=== PATIENT | female | born 1975 | race Caucasian/White ===

== ENCOUNTER 2020-02-29 17:10 | Emergency (ER) | payer BC, OTHER ==
[2020-02-29 17:19] VITALS: BP 107/51; PULSE 75; TEMP 98.4; BMI 36.6
--- NOTE | 2020-02-29 18:26 | PDOC ---
History of Present Illness - General Chief Complaint: Eye Problem Stated Complaint: EYE IRRITATION Time Seen by Provider: 02/29/20 17:46 History Source: Patient Exam Limitations: Clinical Condition - History of Present Illness Initial Comments: 02/29/20 18:28 Patient with no significant past medical history present with complaint of over 2 weeks history of burning sensation bilateral eyes with yellow discharge upon waking the morning and bilateral eye irritation. Denies blurry vision or change in vision. Patient reported calling her readiness paraprofessional and have a follow-up ap pointment in 3 days but came in today because symptoms since persistent. 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 Denies any trauma or injury to eye. Denies any other symptoms Is this a multiple visit Asthma Patient?: No Timing/Duration: other (2 weeks) Past History - Medical History Allergies/Adverse Reactions: Allergies Allergy/AdvReac Type Severity Reaction Status Date / Time No Known Allergies Allergy Verified 02/29/20 17:14 Home Medications: Ambulatory Orders Erythromycin 0.5% Eye Ointment [Erythromycin 0.5% Eye Ointment -] 1 applic OU TID 5 Days #1 tube 02/29/20 - Reproductive History Is Patient Now?: No - Psycho-Social/Smoking History Smoking History: Never smoked Have you smoked in the past 12 months: No - Substance Abuse Hx (Audit-C & DAST Scrn) How often the patient has a drink containing alcohol: Never Score: In Men: 4 or > Positive; In Women: 3 or > Positive: 0 Screen Result (Pos requires Nsg. Audit-10AR): Negative In the last yr the pt used illegal drug/Rx for NonMed reason: No Score: Yes response is considered Positive: 0 Screen Result (Positive result requires Nsg. DAST-10): Negative Review of Systems - Review of Systems Able to Perform ROS?: Yes Is the patient limited [place] proficient: No Constitutional: No: Chills, Fever, Malaise HEENTM: Yes: Symptoms Reported, See HPI, Eye Pain (b/l eye irritation). No: Blurred Vision, Tearing, Recent change in vision, Double Vision, Cataracts, Ear Pain, Ocular Prothesis, Ear Discharge, Nose Pain, Nose Congestion, Tinnitus, Nose Bleeding, Hearing Loss, Throat Pain, Throat Swelling, Mouth Pain, Dental Problems, Difficulty Swallowing, Mouth Swelling, Other Respiratory: No: Symptoms reported, See HPI, Cough, Orthopnea, Shortness of Breath, SOB with Exertion, SOB at Rest, Stridor, Wheezing, Productive cough, Hemoptysis, Other Cardiac (ROS): No: Symptoms Reported, See HPI, Chest Pain, Edema, Irregular Heart Rate, Lightheadedness, Palpitations, Syncope, Chest Tightness, Other ABD/GI: No: Symptoms Reported, Nausea, Vomiting Integumentary: No: Symptoms Reported, See HPI, Erythema Neurological: No: Symptoms reported, Headache, Weakness, Dizziness All Other Systems: Reviewed and Negative *Physical Exam - Vital Signs Last Vital Signs Temp Pulse Resp BP Pulse Ox 98.4 F 75 18 107/51 L 100 02/29/20 17:14 02/29/20 17:14 02/29/20 17:14 02/29/20 17:14 02/29/20 17:14 - Physical Exam 02/29/20 18:32 GENERAL: Well developed, well nourished. Awake and alert. No acute distress. HEENT: mild conjunctival erythema bilateral with no eye discharge. Pupil equal fracture to light bilateral. Extraocular muscle intact.Normocephalic, atraumatic. No conjunctival pallor. Sclera are non-icteric. Moist mucous membranes. Oropharynx is clear. NECK: Supple. Full ROM. CARDIOVASCULAR: Regular rate and rhythm. No murmurs, rubs, or gallops. PULMONARY: No evidence of respiratory distress. Lungs clear to auscultation bilaterally. No wheezing, rales or rhonchi. MUSCULOSKELETAL Normal range of motion at all joints. SKIN: Warm and dry. Normal capillary refill. No skin erythema or swelling to bilateral eyelids NEUROLOGICAL: Alert, awake, appropriate. Gait is normal without ataxia. PSYCHIATRIC: Cooperative. Good eye contact. Appropriate mood General Appearance: Yes: Nourished, Appropriately Dressed. No: Apparent Distress Medical Decision Making - Medical Decision Making 02/29/20 18:30 Patient with no significant past medical history present with complaint of over 2 weeks history of burning sensation bilateral eyes with yellow discharge upon waking the morning and bilateral eye irritation. Denies blurry vision or change in vision. Patient reported calling her readiness paraprofessional and have a follow-up appointment in 3 days but came in today because symptoms since persistent. 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 Denies any trauma or injury to eye. Denies any other symptoms Exam significant for mild conjunctival erythema bilateral with no eye discharge. Pupil equal fracture to light bilateral. Extraocular muscle intact. Patient in no acute distress. Patient stable for discharge azithromycin ointment for antibiotic treatment and eye lubrication with ophthalmology follow-up in 3 days as scheduled Discharge - Discharge Information Problems reviewed: Yes Clinical Impression/Diagnosis: Corneal irritation of both eyes Condition: Stable Disposition: HOME - Admission No - Additional Discharge Information Prescriptions: Erythromycin 0.5% Eye Ointment [Erythromycin 0.5% Eye Ointment -] 1 applic OU TID 5 Days #1 tube - Follow up/Referral Referrals: Juarez Son MD [Staff Physician] - - Patient Discharge Instructions Additional Instructions: Use provided antibiotics ointment as prescribed to help lubricate the eye and also prevent infection. Follow-up with your ophthalmology as scheduled in 3 days or referred readiness paraprofessional if unable to follow-up with your own readiness paraprofessional - Post Discharge Activity Work/Back to School Note: Back to Work
== END 2020-02-29 18:30 | disposition home or self-care (01) ==
LOC: JER 17:10 → JERFT 17:10
DX: H57.9 Unspecified disorder of eye and adnexa (principal)
CPT/HCPCS: 99283-25